=== PATIENT | female | born 1960 | race Caucasian/White ===

== ENCOUNTER 2021-03-02 19:06 | Inpatient (IN) | payer OTHER ==
[~2021-03-02] VITALS: Ht 177.8 cm; Wt 95.3 kg
[2021-03-02 20:22] VITALS: BP 176/106
[2021-03-02 20:45] LABS: BASOPHILS # (AUTO) 0.1 K/uL (0.00-0.22); BASOPHILS % (AUTO) 0.6 % (0.0-2.0); EOSINOPHILS # (AUTO) 0.2 K/uL (0-0.4); EOSINOPHILS % (AUTO) 1.9 % (0.0-4.0); HEMATOCRIT 41.1 % (36-48); LYMPHOCYTES # (AUTO) 1.6 K/uL (2.5-16.5); LYMPHOCYTES % (AUTO) 18.9 % (20.5-51.1); MEAN CORPUSCULAR HEMOGLOBIN 31 pg (27-31); MEAN CORPUSCULAR HGB CONC 34 g/dL (33-37); MEAN CORPUSCULAR VOLUME 91.8 fL (80-94); MONOCYTES # (AUTO) 0.8 K/uL (0.8-1.0); MONOCYTES % (AUTO) 9.2 % (1.7-9.3); NEUTROPHILS # (AUTO) 5.9 K/uL (1.8-7.7); NEUTROPHILS % (AUTO) 69.4 % (42.2-75.2); PLATELET COUNT (AUTO) 214 K/uL (140-450); RED BLOOD CELL COUNT(AUTO) 4.47 MIL/uL (4.20-5.40); RED CELL DISTRIBUTION WIDTH 12.9 % (11.6-13.7); WHITE BLOOD COUNT (AUTO) 8.5 K/uL (4.8-10.8)
[2021-03-02 20:46] LABS: APPEARANCE,URINE CLEAR (CLEAR); BILIRUBIN,URINE NEGATIVE (NEGATIVE); BLOOD, URINE NEGATIVE (NEGATIVE); COLOR,URINE YELLOW (YELLOW); LEUKOCYTE ESTERASE ,URINE NEGATIVE (NEGATIVE); NITRITE, URINE NEGATIVE (NEGATIVE); PH,URINE 5.5 (5.0-9.0); UGLUCOSE NEGATIVE (NEGATIVE)
--- NOTE | 2021-03-02 20:54 | NUR ---
PT TAKEN TO CT VIA W/C
[2021-03-02 21:05] LABS: ANION GAP 11.4 (8-16); CARBON DIOXIDE 28.6 mmol/L (21-32); CREATININE 0.8 mg/dL (0.6-1.3); TOTAL BILIRUBIN 0.2 mg/dL (0.0-1.0)
--- NOTE | 2021-03-02 22:02 | NUR ---
PT AMBULATED TO BED #10
--- NOTE | 2021-03-02 22:06 | NUR ---
60 YO/F BIBS ACCOMPANIED BY W C/O LLQ ABDOMINAL/PELVIC PAIN 10/10 THROBBING, NON RAD, CONSTANT X1 DAY, +N, + X1 EPISODE OF VOMITING. PT DENIES ANY BLOOD IN VOMIT. PT DENIES ABE FEVER, REPORTS DIARRHEA BUT IS HER NORMAL BM. PT DENIES ANY URINAY PROBLEMS/SYMPTOMS. PT LAYING IN BED IN R LATERAL POSITION W KNEES SLIGHTLY BENT UP HOLDING LLQ W HANDS D/T PAIN. VSS. ERMD MADE AWARE OF PT PAIN. PT PROVIDED W BLANKET. BED LOCKED IN LOWEST POSITION W X1 SIDERAIL UP. PMH:HTN NKA
[2021-03-02] MEDS ORDERED: NACL 0.9% 1,000 ML IV ONE (22:15)
[2021-03-02] MEDS ORDERED: MORPHINE SULFATE 4 MG/ML SYR IVP ONE (22:15)
[2021-03-02] MEDS ORDERED: ONDANSETRON 4 MG/2 ML VIAL IVP ONE (22:15)
--- NOTE | 2021-03-02 22:31 | NUR ---
Dr. Wilkinson examining patient.
[2021-03-02] MEDS ORDERED: KETOROLAC 30 MG/ML VIAL IVP ONE (22:35)
--- NOTE | 2021-03-02 22:46 | NUR ---
ULTRASOUND AT BEDSIDE
[2021-03-02 23:05] LABS: PROTHROMBIN TIME 10.7 secs (10.8-13.4)
[2021-03-02] MEDS ORDERED: MORPHINE SULFATE 4 MG/ML SYR IVP PRN (23:20)
[2021-03-02] MEDS ORDERED: MORPHINE SULFATE 2 MG/ML SYR IVP PRN (23:20)
--- NOTE | 2021-03-02 23:36 | NUR ---
PT REPORTS PAIN IMPROVEMENT TO 5/10. PT REPORTS TAKES X1 MEDICATION AT HOME FOR HER BLOOD PRESSURE BUT DOES NOT REMEMBER THE NAME. PER WILL BRING MED INFO IN THE MORNING.
--- NOTE | 2021-03-02 23:40 | NUR ---
Pt report given to JOSHUA BUENO. Transfer of care at this time.
--- NOTE | 2021-03-02 23:46 | NUR ---
PER TO MAKE STAFF KNOWN PT IS RECOVERING FROM R BROKEN FIBIA X 1MONTH AGO.
--- NOTE | 2021-03-02 23:53 | NUR ---
PER ERMD DR. ANDERSEN TO ADMINISTER PT 4MG OF HER PRN MORPHINE AT THIS TIME.
--- NOTE | 2021-03-03 00:09 | NUR ---
Patient will be admitted to care of DR. NEUMANN. Admited to [facility]. Will go to [id number]. Belongings list completed. Report to JOSHUA BUENO.
--- NOTE | 2021-03-03 00:54 | NUR ---
RECEIVED REPORT FROM COMPUTER TRAINER NURSE OVER THE PHONE, PT IN STABLE CONDITION. PT WAS BROUGHT UP TO THE FLOOR VIA W/C AND AMBULATED TO BED B OF ROOM 104. PT IS AOX4 AND ON ROOM AIR. WITH HER SKIN INTACT. PT ONLY HX IS HTN AND A RECENT BROKEN RIGHT ANKLE FX(WHICH IS HEALED AND SHE IS ABLE TO AMBULATE ON ). PT HAS A 20G ON HER RIGHT AC. INTACT AND SALINE LOCKED. MRSA SWAB DONE, ADMISSION QUESTIONS ASKED AND ANSWERED, PT ORIENTED TO ROOM. V/S FOLLOWS: T 97.7 P 82 R 18 B/P 145/78 02 96% ON ROOM AIR.
[2021-03-03 02:00] VITALS: BP 145/78
[2021-03-03] MEDS: MORPHINE SULFATE 2 MG/ML SYR IVP PRN (03:26)
--- NOTE | 2021-03-03 03:35 | NUR ---
PT GIVEN 2MG MORPHINE IVP FOR MODERATE PAIN.
--- NOTE | 2021-03-03 06:00 | NUR ---
PT IN BED ASLEEP ALL FALLS PRECAUTIONS IN PLACE.
[2021-03-03 06:53] LABS: BASOPHILS # (AUTO) 0.1 K/uL (0.00-0.22); EOSINOPHILS % (AUTO) 0.1 % (0.0-4.0); HEMATOCRIT 36.4 % (36-48); HEMOGLOBIN 12.3 g/dL (12.0-16.0); LYMPHOCYTES # (AUTO) 1.3 K/uL (2.5-16.5); MEAN CORPUSCULAR HEMOGLOBIN 31 pg (27-31); MEAN CORPUSCULAR HGB CONC 34 g/dL (33-37); MEAN CORPUSCULAR VOLUME 92.5 fL (80-94); MONOCYTES # (AUTO) 0.6 K/uL (0.8-1.0); MONOCYTES % (AUTO) 7.6 % (1.7-9.3); NEUTROPHILS # (AUTO) 5.5 K/uL (1.8-7.7); NEUTROPHILS % (AUTO) 73.3 % (42.2-75.2); PLATELET COUNT (AUTO) 186 K/uL (140-450); RED BLOOD CELL COUNT(AUTO) 3.94 MIL/uL (4.20-5.40); RED CELL DISTRIBUTION WIDTH 12.7 % (11.6-13.7); WHITE BLOOD COUNT (AUTO) 7.5 K/uL (4.8-10.8)
[2021-03-03 07:06] LABS: ALBUMIN 3.3 g/dL (3.4-5.0); ANION GAP 12.7 (8-16); CARBON DIOXIDE 24.8 mmol/L (21-32); CREATININE 0.7 mg/dL (0.6-1.3); POTASSIUM 4.5 mmol/L (3.5-5.1); TOTAL BILIRUBIN 0.4 mg/dL (0.0-1.0)
--- NOTE | 2021-03-03 07:25 | NUR ---
RECEIVED REPORT FROM WEATHERIZATION COORDINATOR NURSE. PATIENT LYING DOWN IN BED SLEEPING, AROUSABLE BY VOICE. NO DISTRESS NOTED. ABD PAIN WITHIN TOLERABLE AT THIS TIME. IV SITE INTACT, PATENT, AND ON SALINE LOCK. ON ROOM AIR. SAFETY MEASURES IN PLACE, CALL LIGHT WITHIN REACH. WILL CONTINUE TO MONITOR.
[2021-03-03 08:00] VITALS: BP 139/76
[2021-03-03] MEDS: MORPHINE SULFATE 4 MG/ML SYR IVP PRN ×5 (08:26→21:40)
--- NOTE | 2021-03-03 08:27 | NUR ---
PATIENT COMPLAINS OF 8/10 ABD PAIN. MORPHINE GIVEN AT THIS TIME. WILL CONTINUE TO MONITOR.
[2021-03-03] MEDS ORDERED: ONDANSETRON 4 MG/2 ML VIAL IM/IVP PRN (08:40)
[2021-03-03] MEDS ORDERED: ACETAMINOPHEN 325 MG TAB PO PRN (08:40)
[2021-03-03] MEDS: NACL 0.9% 1,000 ML IV SCH (08:40)
[2021-03-03] MEDS ORDERED: MAG SULF 2000 MG/WATER PREMIX 50 ML IV PRN (08:40)
[2021-03-03] MEDS ORDERED: LORazepam 2 MG/ML VIAL IM/IVP PRN (08:40)
[2021-03-03] MEDS ORDERED: DOCUSATE SODIUM 100 MG GELCAP PO PRN (08:40)
[2021-03-03] MEDS ORDERED: POTASSIUM CHLORIDE 10 MEQ TABER PO PRN (08:40)
[2021-03-03] MEDS ORDERED: ZOLPIDEM 5 MG TAB PO PRN (08:40)
[2021-03-03 09:18] LABS: CHOL/HDL RATIO 3.3 (1-4.5); MAGNESIUM 1.9 mg/dL (1.8-2.4); PHOSPHORUS 3.7 mg/dL (2.5-4.9); THYROID STIMULATING HORMONE 1.34 uIU/mL (0.34-3.74)
--- NOTE | 2021-03-03 10:44 | NUR ---
SCHEDULED IVF STARTED. HEPARIN NOT GIVEN AT THIS TIME D/T POSSIBLE SURGERY. WILL CONTINUE TO MONITOR.
[2021-03-03] MEDS ORDERED: HYDROmorphone 1 MG/ML AMP IVP SCH (11:15)
[2021-03-03] MEDS: LOSARTAN 25 MG TAB PO SCH (12:00)
--- NOTE | 2021-03-03 13:28 | NUR ---
SCHEDULED MEDICATIONS DUE GIVEN. COMPLAINS OF PAIN, MORPHINE GIVEN AT THIS TIME. WILL CONTINUE TO MONITOR.
--- NOTE | 2021-03-03 14:17 | NUR ---
PATIENT HAS BEEN SCREENED AND CATEGORIZED LOW NUTRITION RISK. PATIENT WILL BE SEEN WITHIN 7 DAYS OF ADMISSION. 03/09/[address]
[2021-03-03 14:38] LABS: BARBITURATE, URINE NEGATIVE ng/ml (NEG <=200); BENZODIAZEPINE, URINE NEGATIVE ng/mL (NEG <=200); CANNABINOID, URINE NEGATIVE ng/mL (NEG <=50); COCAINE, URINE NEGATIVE ng/mL (NEG <=300); OPIATE, URINE POSITIVE ng/mL (NEG <=2000); PHENCYCLIDINE SCREEN,URINE NEGATIVE ng/mL (NEG <=25)
[2021-03-03 16:00] VITALS: BP 152/87
--- NOTE | 2021-03-03 17:50 | NUR ---
PATIENT LYING DOWN IN BED, NO DISTRESS NOTED. PAIN WITHIN TOLERABLE. WILL CONTINUE TO MONITOR.
--- NOTE | 2021-03-03 19:24 | NUR ---
GAVE REPORT TO BACK HOE MACHINE OPERATOR NURSE FOR CONTINUITY OF CARE. PATIENT IN STABLE CONDITION.
--- NOTE | 2021-03-03 19:25 | NUR ---
RECEIVED REPORT FROM AM NURSE. PATIENT IN BED AWAKE, ALERT AND VERBALLY RESPONSIVE. ABLE TO VERBALIZED NEEDS. FAMILY MEMBER IN BEDSIDE. ALL SAFETY MEASURES IN PLACE. CALL LIGHT WITHIN REACH. WILL CONT TO MONITOR.
--- NOTE | 2021-03-03 19:30 | NUR ---
PT PLAN OF CARE DISCUSSED W KAVON SALMERON AND KAVON HAYWARD.
--- NOTE | 2021-03-03 20:25 | NUR ---
ADMINISTERED SCHEDULED MEDICATIONS. PATIENT TOLERATED WELL. NO ADVERSE SIDE EFFECT NOTED. ALL SAFETY MEASURES IN PLACE. CALL LIGHT WITHIN REACH. WILL CONT TO MONITOR.
--- NOTE | 2021-03-03 21:41 | NUR ---
PATIENT COMPLAINT OF PAIN 11/03. ADMINISTERED PRN PAIN MEDICATIONS BY JOSHUA YEBOAH. WILL DO PAIN REASSESSMENT IN AN HOUR. ALL SAFETY MEASURES IN PLACE. CALL LIGHT WITHIN REACH. WILL CONTINUE TO MONITOR.
--- NOTE | 2021-03-03 22:41 | NUR ---
PATIENT REASSESSED FOR PAIN. DENIES ANY PAIN.
[2021-03-04] VITALS: BP 127/84
--- NOTE | 2021-03-04 00:15 | NUR ---
ROUNDED PATIENT. SLEEPING WELL. VISIBLE CHEST RISING AND FALLING. CALL LIGHT WITHIN REACH. WILL CONTINUE TO MONITOR.
[2021-03-04] MEDS: NACL 0.9% 1,000 ML IV SCH (01:20)
--- NOTE | 2021-03-04 02:15 | NUR ---
PATIENT IS SLEEPING WELL. VISIBLE CHEST RISING AND FALLING. CALL LIGHT WITHIN REACH. WILL CONTINUE TO MONITOR.
[2021-03-04] MEDS: MORPHINE SULFATE 2 MG/ML SYR IVP PRN (03:38)
--- NOTE | 2021-03-04 03:45 | NUR ---
ROUNDING PATIENT. PATIENT IS AWAKE AND ASKING FOR PAIN MEDICATION. PAIN LEVEL 6/10. ADMINISTERED PAIN MEDICATION BY JOSHUA BREWSTER. TOLERATED WELL. NO ASE NOTED. WILL REASSESS PAIN AFTER AN HOUR. CALL LIGHT WITHIN REACH. WILL CONTINUE TO MONITOR.
--- NOTE | 2021-03-04 04:50 | NUR ---
PATIENT REASSESSED PAIN. PATIENT DENIES ANY PAIN.
--- NOTE | 2021-03-04 05:34 | NUR ---
Patient's Plan of Care was discussed and reviewed with KAVON: JOSÉ MIGUEL
--- NOTE | 2021-03-04 07:15 | NUR ---
ENDORSED PATIENT TO AM NURSE FOR CONTINUITY OF CARE. PATIENT IS STABLE.
[2021-03-04 07:45] LABS: BASOPHILS % (AUTO) 0.8 % (0.0-2.0); EOSINOPHILS # (AUTO) 0.1 K/uL (0-0.4); EOSINOPHILS % (AUTO) 2.6 % (0.0-4.0); HEMOGLOBIN 11.7 g/dL (12.0-16.0); LYMPHOCYTES # (AUTO) 1.8 K/uL (2.5-16.5); LYMPHOCYTES % (AUTO) 34.8 % (20.5-51.1); MEAN CORPUSCULAR HEMOGLOBIN 31 pg (27-31); MEAN CORPUSCULAR HGB CONC 34 g/dL (33-37); MEAN CORPUSCULAR VOLUME 92.8 fL (80-94); MONOCYTES # (AUTO) 0.8 K/uL (0.8-1.0); MONOCYTES % (AUTO) 14.7 % (1.7-9.3); NEUTROPHILS # (AUTO) 2.5 K/uL (1.8-7.7); NEUTROPHILS % (AUTO) 47.1 % (42.2-75.2); PLATELET COUNT (AUTO) 156 K/uL (140-450); RED BLOOD CELL COUNT(AUTO) 3.78 MIL/uL (4.20-5.40); RED CELL DISTRIBUTION WIDTH 12.8 % (11.6-13.7); WHITE BLOOD COUNT (AUTO) 5.3 K/uL (4.8-10.8)
[2021-03-04 07:53] LABS: MAGNESIUM 1.9 mg/dL (1.8-2.4); PHOSPHORUS 2.3 mg/dL (2.5-4.9)
--- NOTE | 2021-03-04 07:54 | NUR ---
RECEIVED REPORT FROM PHOTO OFFSET PRINTER NURSE. PATIENT LYING DOWN IN BED , AROUSABLE BY VOICE. NO DISTRESS NOTED. NO COMPLAINS BREATHING EVEN UNLABORED. IV SITE INTACT, PATENT, AND ON SALINE LOCK. ON ROOM AIR. SAFETY MEASURES IN PLACE, CALL LIGHT WITHIN REACH.
[2021-03-04 08:00] VITALS: BP 149/86
[2021-03-04 08:03] LABS: ANION GAP 11.4 (8-16); CARBON DIOXIDE 26.6 mmol/L (21-32); CREATININE 0.7 mg/dL (0.6-1.3)
[2021-03-04 08:08] LABS: T4 (THYROXINE) 4.6 ug/dL (4.5-12.0)
[2021-03-04] MEDS: LOSARTAN 25 MG TAB PO SCH (09:36)
--- NOTE | 2021-03-04 10:05 | NUR ---
PATIENT IN BED NO COMPLAINS, GOT MORNING MEDICATION ADMINISTRATED, TOLERATED WELLNO SOD NOTED, ALL SAFETY MEASURES ONPLACE, CALLS LIGHT WITHIN REACH
--- NOTE | 2021-03-04 11:49 | NUR ---
PATIENT IN BED NO COMPLAINS,NO SOD NOTED, ALL SAFETY MEASURES ONPLACE, CALLS LIGHT WITHIN REACH
[2021-03-04 11:50] VITALS: BP 149/86
--- NOTE | 2021-03-04 13:16 | NUR ---
PATIENT DISCHARGE, IV REMOVED, BLEEDING CONTROLLED SKIN INTACT, ID BAND REMOVED, PATIENT GOT DISCHARGE EDUCATION AND PACKET, WALKED TO THE FRONT LOBBY
== END 2021-03-04 13:38 | disposition home or self-care (01) | DRG 760 ==
LOC: MED 19:06 → MTU 23:23 → MED 23:23
DX: N83.201 Unspecified ovarian cyst, right side (principal); E44.1 Mild protein-calorie malnutrition; I10 Essential (primary) hypertension; N83.202 Unspecified ovarian cyst, left side; E66.9 Obesity, unspecified; E86.0 Dehydration; Z68.30 Body mass index [BMI] 30.0-30.9, adult
CPT/HCPCS: 36415; 71045; 76830; 76856; 80048; 80053; 80305; 81003; 83036; 83690; 83735; 83880; 84100; 84134; 84436; 84443; 85025; 85610; 85730; 86886; 86900; 86901; 87081; 96361; 96374; 96375; 99285; J1170; J1644; J1885; J2270; J2405; Q0092